=== PATIENT | male | born 2000 | race Caucasian/White ===

== ENCOUNTER 2021-03-16 16:49 | Emergency (ER) | payer OTHER, SELFPAY ==
--- NOTE | ~2021-03-16 | XR_ITS ---
EXAMINATION: XR hand LT min 3V EXAM DATE: 03/16/2021 17:05 INDICATION: Hit with ball yesterday, persistent left hand pain, initial encounter. TECHNIQUE: Left hand frontal, lateral and oblique projections obtained and reviewed. There is no gege or study for comparison. FINDINGS: Left metacarpal bones are unremarkable. There are no acute fractures or dislocations ident ified. There is no subcutaneous gas. The soft tissue is unremarkable. There are no radiopaque for eign bodies. IMPRESSION: No acute osseous findings. Reviewed, dictated and finalized at location A. IMPRESSION: No acute osseous findings.
[2021-03-16 17:05] VITALS: BP 113/54; PULSE 71; RESP 16; TEMP 36.6; O2SAT 100
--- NOTE | 2021-03-16 17:23 | ED.UPPEXIN ---
HPI - Extremity Injury (Upper) General Chief Complaint: Extremity Injury, Upper Stated Complaint: INJURED L HAND Time Seen by Provider: 03/16/21 16:50 Source: patient Mode of arrival: ambulatory Limitations: no limitations History of Present Illness HPI narrative: 21-year-old male presents to urgent care with complaints of pain to the palmar and lateral aspect of his left hand after being hit by a pitch while playing baseball yesterday. Patient has been wearing a wrist brace, taking [id number] ibuprofen and applying ice with little relief. Patient denies wrist pain, numbness, tingling, erythema or open wounds. MD complaint: injury to: left and hand Onset (ago): day(s) (1) Other Extremity Injury: Left: hand Associated symptoms: denies other symptoms Related Data Allergies Allergy/AdvReac Type Severity Reaction Status Date / Time No Known Allergies Allergy Verified 03/16/21 17:18 Review of Systems Constitutional: Constitutional: Denies chills, Denies fatigue, Denies fever(s) and Denies weakness Cardiovascular: Cardiovascular: Denies chest pain and Denies radiating jaw, neck or arm pain Respiratory: Respiratory: Denies chest congestion, Denies cough, Denies dyspnea and Denies wheezing Gastrointestinal: Gastrointestinal: Denies abdominal pain, Denies diarrhea, Denies nausea and Denies vomiting Musculoskeletal: Comments: Pain to lateral and palmar aspect of left hand Integumentary/Breasts: Skin/Breast: Denies rash PMFSH Social History Social History (Updated 03/16/21 @ 17:26 by Ceci Johnson, JOINERY MACHINIST) Smoking status: Never smoker Alcohol intake: current Gender identity (if verbalized by the patient): Male Comments At time of signature, I agree with nursing past medical, surgical, social and family history. There is no relevant family history pertinent to the presenting complaint. Exam Const: General: no acute distress Nutritional Appearance: well nourished Orientation/consciousness: patient oriented x3 Neck: Neck: normal visual inspection Chest: Chest palpation & inspection: normal inspection of the chest Resp: Effort & Inspection: normal respiratory effort, not labored and not tachypneic Auscultation: clear to auscultation bilaterally Cardio: Rate: regular rate, not bradycardic and not tachycardic Rhythm: regular rhythm Skin: General skin exam: normal color Rashes: no rashes Wounds: no wounds Neuro: General: patient oriented x3 and moves all extremities Speech: normal speech Extrem: Other: Mild swelling and bruising noted to palmar aspect of left hand. There are no open wounds. Normal range of motion is noted. Psych: Appearance: grossly normal Mental Status: mental status grossly normal Affect: normal affect Attitude: cooperative Thought content: Yes Normal thought content present Course Vital Signs Vital signs: Vital Signs Temperature 36.6 C 03/16/21 17:05 Pulse Rate 71 03/16/21 17:05 Respiratory Rate 16 03/16/21 17:05 Blood Pressure 113/54 L 03/16/21 17:05 Pulse Oximetry 100 03/16/21 17:05 Temperature 36.6 C 03/16/21 17:05 Pulse Rate 71 03/16/21 17:05 Respiratory Rate 16 03/16/21 17:05 Blood Pressure 113/54 L 03/16/21 17:05 Pulse Oximetry 100 03/16/21 17:05 MDM - Extremity Injury (Upper) MDM Narrative Medical decision making narrative: Khalif wrap applied to left hand per nursing staff. Patient agrees to take anti-inflammatories prescribed. Patient agrees to follow-up with primary care provider if symptoms not improved. Rice therapy discussed with patient Differential Diagnosis Differential diagnosis: Likely sprain and strain of wrist and other (Fracture, cellulitis, arthritis) Imaging Data Radiologist's impression: Negative left hand x-ray per radiologist Critical Care Time Critical Care Time Critical Care Time: No Discharge Plan Discharge Clinical Impression: Hand pain, left Patient Disposition: Home, Self-Care Condition: S
== END 2021-03-16 17:33 | disposition home or self-care (01) ==
PROVIDERS: Emergency Provider Nurse Practitioner Family; PCP Family Medicine
DX: M79.642 Pain in left hand (principal)
CPT/HCPCS: 73130; 99213; G0463

== ENCOUNTER 2021-11-25 15:45 | Emergency (ER) | payer OTHER, SELFPAY ==
--- NOTE | ~2021-11-25 | XR_ITS ---
EXAMINATION: XR hand RT min 3V DATE: 11/25/2021 15:59 INDICATION: Right hand injury and pain. TECHNIQUE: 3 views of right hand were obtained. COMPARISON: None. FINDINGS: There is a nonaggressive 3.5 x 1.3 cm expansile lytic lesion in the diaphysis of second met acarpal with pathologic stellate fracture in near-anatomic alignment. Joint spaces are normal. IMPRESSION: 1. Nonaggressive expansile lytic lesion with nondisplaced pathologic stellate fracture of diaphysis o f second metacarpal. The differential diagnosis includes aneurysmal bone cyst, enchondroma, and unica meral bone cyst. Reviewed, dictated and finalized at location E. IMPRESSION: 1. Nonaggressive expansile lytic lesion with nondisplaced pathologic stellate f racture of diaphysis of second metacarpal. The differential diagnosis includes aneurysmal bone cyst, enchondroma, and unicameral bone cyst.
[2021-11-25 15:52] VITALS: BP 110/57; PULSE 69; RESP 18; TEMP 36.8; O2SAT 100
[2021-11-25 15:54] VITALS: BP 110/57; PULSE 69; RESP 18; TEMP 36.8; O2SAT 100
--- NOTE | 2021-11-25 15:54 | ED.UPPEXIN ---
HPI - Extremity Injury (Upper) General Chief Complaint: Extremity Injury, Upper Stated Complaint: Right index finger pain Time Seen by Provider: 11/25/21 15:54 Source: patient Mode of arrival: ambulatory Limitations: no limitations History of Present Illness HPI narrative: Noel Cotton is a 21 yo male with no PMH here with right hand pain and swelling after sledding in the base yesterday while playing baseball and bending his index finger while he was sliding. Finger is swollen and painful Related Data Allergies Allergy/AdvReac Type Severity Reaction Status Date / Time No Known Allergies Allergy Verified 10/04/21 07:28 Review of Systems Review of Systems: CONSTITUTIONAL: Denies fever, chills, sweats. EYES: Denies visual changes, redness, discharge. ENT: Denies rhinorrhea, congestion, sore throat, otalgia. CARDIOVASCULAR: Denies chest pain, palpitations, edema. RESPIRATORY: Denies dyspnea, wheezing, cough GASTROINTESTINAL: Denies abdominal pain, nausea, vomiting, diarrhea. GENITOURINARY: Denies dysuria, hematuria, abnormal discharge SKIN: Denies rash or itching. NEUROLOGIC: Denies numbness, or focal weakness. PSYCHIATRIC: Denies anxiety or depression. Right index finger pain PMFSH Social History Social History Smoking status: Never smoker Second hand tobacco smoke exposure: No Alcohol intake: current Substance use: never Substance use type: does not use Gender identity (if verbalized by the patient): Male Sexual Orientation (if Verbalized by the Patient): Straight or Heterosexual Comments At time of signature, I agree with nursing past medical, surgical, social and family history. There is no relevant family history pertinent to the presenting complaint. Exam Narrative: GENERAL: This is a well-nourished, well-developed patient, in mild distress. HEAD: normocephalic, atraumatic. EYES: PERRL. Vision is grossly intact. EARS: External ears normal. Hearing grossly intact. NOSE: External nose normal without nasal discharge, nares without redness, no rhinorrhea. THROAT: Mucous NECK: Neck supple, CARDIOVASCULAR: Regular rate and rhythm without murmurs, gallops, or rubs. RESPIRATORY: Clear to auscultation. Breath sounds equal bilaterally. No wheezes, rales, or rhonchi. GASTROINTESTINAL: Not done SKIN: warm, intact with no suspicious lesions or rash, good texture and turgor. NEURO: awake, alert, and oriented to person, place and time. There were no obvious focal neurologic abnormalities. Steady gait EXTREMITIES: Normal range of motion. R hand: Unable to move proximal joint of right index finger with some swelling of the finger patient states pain with lateral movement BACK: Nontender without deformity Course Course Emergency Course: Patient here after sustaining an injury to the right index finger history of a baseball game when he was sliding into base Pain with any movement and some swelling pain with lateral movement Patient x-ray of finger shows a nonaggressive expansile lytic lesion with nondisplaced radiographic stellate fracture of the diaphysis of the second metacarpal diagnosis differential diagnosis includes aneurysmal bone cyst, and enchondroma,, and unicameral bone cyst Placed in splint and sent to Dr. Gates, hand surgeon for further evaluation Patient was encouraged to follow-up for leg lesion and index finger but episodes of the patient that the [place] cancer although it might need surgery and might need further treatment patient was overheard to tell his father was waiting for him in the waiting room that we told him that he had bone cancer which in fact is not the case Level of Care: Express Care Visit Vital Signs Vital signs: Vital Signs Temperature 98.2 F 11/25/21 15:52 Pulse Rate 69 11/25/21 15:52 Respiratory Rate 18 11/25/21 15:52 Blood Pressure 110/57 L 11/25/21 15:52 Pulse Oximetry 100 11/25/21 15:52 Temperatu
== END 2021-11-25 16:36 | disposition home or self-care (01) ==
PROVIDERS: Emergency Provider Nurse Practitioner; PCP Family Medicine
DX: M89.9 Disorder of bone, unspecified (principal); S63.650A Sprain of metacarpophalangeal joint of right index finger, initial encounter; W22.8XXA Striking against or struck by other objects, initial encounter; Y93.64 Activity, baseball
CPT/HCPCS: 29130; 73130; 99213; G0463